=== PATIENT | female | born 1950 | race Caucasian/White ===

== ENCOUNTER 2019-09-19 13:12 | Emergency (ER) | payer MEDICARE, SELFPAY ==
--- NOTE | ~2019-09-19 | XR_ITS ---
EXAMINATION: XR hip LT min 2V DATE: 09/19/2019 14:53 INDICATION: Left hip pain. TECHNIQUE: 3 views of left hip were obtained. COMPARISON: None. FINDINGS: Bone alignment is normal. No fracture. There is mild left hip osteoarthritis. IMPRESSION: 1. Mild left hip osteoarthritis. Reviewed, dictated and finalized at location A. SAMPLER
--- NOTE | ~2019-09-19 | XR_ITS ---
EXAMINATION: XR knee LT min 4V EXAM DATE: 09/19/2019 14:53 INDICATION: No known recent injury provided at this time. Pain of the left knee. TECHNIQUE: Left knee frontal, crosstable lateral, orthogonal oblique projections for interpretation. Comparison is made to prior examination from 03/25/2019. FINDINGS: No evidence osteochondral defect or joint body in the left knee joint. There is moderate patellofemoral, mild tibiofemoral compartment primary osteoarthritis. No joint effusion. Faint menis deandre calcification, chondrocalcinosis. Chondrocalcinosis can be an age related finding, but with other possible etiologies including CPPD, parathyroid disorders, hemochromatosis, gout. There are no acute fractures identified. The soft tissue is unremarkable. IMPRESSION: 1. Left knee osteoarthritis, moderate at patellofemoral compartment. 2. Chondrocalcinosis. Reviewed, dictated and finalized at location A. RNATIONAL COORDINATOR
[2019-09-19 13:20] VITALS: BP 158/57; PULSE 62; RESP 18; TEMP 36.4; O2SAT 100
--- NOTE | 2019-09-19 13:32 | ED.LOWEXIN ---
HPI - Extremity Injury (Lower) General Chief Complaint: Extremity Injury, Lower Stated Complaint: hip and knee pain Time Seen by Provider: 09/19/19 13:36 Source: patient and family History of Present Illness HPI Narrative: Patient presents with left hip and knee pain. Patient denies any injury. Patient states she woke up with left hip and knee pain. No swelling no deformity no bruising no open areas noted. Patient has normal range of motion of her hip and her knee. Patient states it hurts to walk on her knee and hip. Injury: Left: hip and knee Related Data Home Medications Medication Instructions Recorded Confirmed Daily Multivitamin 08/09/19 amlodipine 10 mg PO DAILY 08/09/19 09/19/19 glimepiride 4 mg PO DAILY 08/09/19 09/19/19 lisinopril 10 mg PO DAILY 08/09/19 09/19/19 pregabalin [Lyrica] 150 mg PO HS 08/09/19 09/19/19 sitagliptin [Januvia] 100 mg PO DAILY 08/09/19 09/19/19 spironolactone 25 mg PO DAILY 08/09/19 08/09/19 rosuvastatin 08/24/19 Allergies Allergy/AdvReac Type Severity Reaction Status Date / Time Penicillins Allergy Hives Verified 08/09/19 17:28 Review of Systems Review of Systems: Narrative: CONSTITUTIONAL: Denies fever, chills, or sweats. EYES: Denies visual changes, redness, or discharge. ENT: Denies rhinorrhea, congestion, sore throat, or otalgia. CARDIOVASCULAR: Denies chest pain, palpitations, or edema. RESPIRATORY: Denies cough or dyspnea. GASTROINTESTINAL: Denies abdominal pain, nausea, vomiting, or diarrhea. GENITOURINARY: Denies dysuria or hematuria. SKIN: Denies rash or itching. MUSCULOSKELETAL: Denies back pain, joint pain, or myalgia. Patient reports left hip and knee pain NEUROLOGIC: Denies headache, numbness, or weakness. PSYCHIATRIC: Denies anxiety or depression. [facility] Past Medical History Medical History Benign essential tremor CHF (congestive heart failure) Diabetes mellitus Hyperlipidemia Hypertension Peripheral neuropathy UTI (urinary tract infection) Surgical History Surgical History Hx of cholecystectomy Social History Social History Smoking status: Never smoker Alcohol intake: current Gender identity (if verbalized by the patient): Female Comments At time of signature, agree with nursing past medical, surgical, social and family history. There is no relevant family history pertinent to the presenting complaint Exam Narrative: Exam Narrative: GENERAL: Well-appearing, well-nourished, and in no acute distress. HEAD: Normocephalic, atraumatic. EYES: PERRLA and EOMI. ENT: Nares clear, no rhinorrhea or epistaxis. Mucous membranes moist. NECK: Supple. CHEST: Clear to auscultation. No respiratory distress. HEART: Regular rate and rhythm. No murmur heard. Normal peripheral pulses. ABDOMEN: Soft, nontender, nondistended, normal active bowel sounds. EXTREMITIES: Normal range of motion. No edema. Lower extremity: RIGHT HIP EXAM - SKIN INTACT. NO BRUISING, REDNESS OR SWELLING. NO INGUINAL MASSES OR LYMPHADENOPATHY. GENERALIZED FEMUR AND HIP TENDERNESS. PATIENT HOLDING HIP IN EXTERNAL ROTATION WITH SLIGHT FLEXION OF KNEE. NO BUTTOCK OR SI JOINT TENDERNESS. ROM LIMITED DUE TO PAIN. NORMAL FEMORAL PULSES. BACK EXAM - NO VERTEBRAL POINT SPECIFIC TENDERNESS OR STEP OFFS. NORMAL ROM OF BACK. NORMAL FLEXION AND EXTENSION OF BACK. NO CVA TENDERNESS. LEG EXAM - NO CALF OR ANKLE SWELLING, DISCOLORATION. NORMAL FOOT SENSATION AND CAP REFILL. NORMAL DP PULSE. . SKIN INTACT. NO DEFORMITY. NORMAL ROM, HAS FULL EXTENSION AND FLEXION. COMPARTMENTS SOFT. NEGATIVE ANTERIOR, POSTERIOR DRAWER SIGNS ON TEST. NO CREPITUS. DP PULSE, NORMAL CAPILLARY REFILL. RIGHT CALF MEASURES 48.5CM; LEFT CALF MEASURES 47.5CM. -MCMURRAYS, PAIN TO RIGHT MEDIAL AND DISTAL KNEE WITH KNEE FLEXION, INTERNAL AND EXTERNAL FOOT ROTATION. RIGHT CALF IS FIRM WITH
--- NOTE | 2019-09-19 15:13 | PC.NURSE ---
[id number] CALLED PT. WITH XRAY RESULTS OR OSEOARTHRITIS IN LT HIP AND LT. KNEE.
== END 2019-09-19 14:54 | disposition home or self-care (01) ==
LOC: EXPBETH 13:15
PROVIDERS: Emergency Provider Nurse Practitioner Family; PCP Physician Assistant
DX: M25.552 Pain in left hip (principal); M17.12 Unilateral primary osteoarthritis, left knee; I11.0 Hypertensive heart disease with heart failure; I50.9 Heart failure, unspecified; E78.5 Hyperlipidemia, unspecified; E11.42 Type 2 diabetes mellitus with diabetic polyneuropathy
CPT/HCPCS: 73502; 73564; 99214; G0463

== ENCOUNTER 2021-08-11 08:48 | Emergency (ER) | payer MEDICARE, SELFPAY ==
--- NOTE | 2021-08-11 16:24 | PC.NURSE ---
1110 staff informed pt we do not have a nurse practitioner at this time and facility could not see patients until further notice. states we were referring pt's to [facility] in [place] at this time. pt states she may go there accompanied by . pt was not assessed by nurse. pt left at this time, no apparent distress, steady on feet.
== END 2021-08-11 11:10 | disposition left against medical advice (07) ==
PROVIDERS: Emergency Provider Nurse Practitioner Family; PCP Physician Assistant
DX: Z53.21 Procedure and treatment not carried out due to patient leaving prior to being seen by health care provider (principal)
CPT/HCPCS: 99199